=== PATIENT | male | born 1990 | race Two or more races ===

== ENCOUNTER 2021-04-21 04:15 | Emergency (ER) | payer SELFPAY ==
[~2021-04-21] VITALS: Ht 172.7 cm; Wt 87.0 kg
[2021-04-21 04:18] VITALS: BP 128/77
== END 2021-04-21 04:46 ==
LOC: ER 04:15
DX: M54.50 Low back pain, unspecified (principal); Z13.9 Encounter for screening, unspecified
CPT/HCPCS: 99283